=== PATIENT | male | born 2000 | race African-American/Black ===

== ENCOUNTER 2024-08-20 18:54 | Emergency (ER) | payer SELFPAY ==
[~2024-08-20] VITALS: Ht 177.8 cm; Wt 90.0 kg
[2024-08-20 18:58] VITALS: BP 135/59; PULSE 116; RESP 18; TEMP 99.4; O2SAT 100
== END 2024-08-21 03:50 | disposition home or self-care (01) ==
LOC: ER 18:54
DX: F10.129 Alcohol abuse with intoxication, unspecified (principal); F12.929 Cannabis use, unspecified with intoxication, unspecified; Y90.9 Presence of alcohol in blood, level not specified
CPT/HCPCS: 99283